=== PATIENT | male | born 1980 | race Caucasian/White ===

== ENCOUNTER 2016-12-29 16:18 | Emergency (ER) | payer OTHER ==
--- NOTE | 2016-12-29 18:14 | ED ---
Back Pain - HPI Summary HPI Summary: 36 male presents with complaints of lower back pain and hearing a "pop" that began yesterday 12/28/16 when trying to lift his who is paralyzed into the car. Patients states he was lifting up and twisted when he felt instant pain and a pop. Patient states he has chronic back pain that began 13 years ago from a previous injury however, he has worsening pain intermittently when he tweaks it. Patient denies numbness/tingling, saddle anesthesia, bladder/bowel incontinence and weakness. He is able to walk and bear weight however it does cause him pain. Movement makes the pain worse. Tried taking 6-800mg of ibuprofen without relief. Denies known bruising and swelling. No recent trauma. Denies neck pain, abdominal pain, difficulty breathing, chest pain and upper back pain. No PMHx. - History of Current Complaint Chief Complaint: EDBackInjuryPain Stated Complaint: LOWER BACK PAIN Time Seen by Provider: 12/29/16 17:46 Hx Obtained From: Patient Onset/Duration: Sudden Onset, Lasting Days - started yesterday, Still Present, Worse Since Onset/Duration: Started Days Ago, Traumatic - twisting and lifting Timing: Constant Back Pain Location: Is Discrete @ - lower lumbarsacral pain Severity Initially: Moderate Severity Currently: Moderate Pain Intensity: 9 Pain Scale Used: 0-10 Numeric Character: Sharp, Aching, Throbbing, Spasmodic Aggravating Symptom(s): Movement, Lifting, Walking Alleviating Symptom(s): Rest Associated Signs And Symptoms: Positive: Pain with Weight Bearing. Negative: Swelling, Redness, Bruising, Weakness, Numbness, Tingling, Abdominal Pain, Bladder Incontinence, Bowel Incontinence Related History: Previous Back Injury - Risk Factors AAA Risk Factors: Negative TAD Risk Factors: Negative Cauda Equina Risk Factors: Negative Epidural Abscess Risk Factors: Negative - Allergies/Home Medications Allergies/Adverse Reactions: Allergies Allergy/AdvReac Type Severity Reaction Status Date / Time Codeine Allergy Hives Verified 12/29/16 16:31 Tramadol Allergy Difficulty Verified 12/29/16 16:30 Breathing PMH/Surg Hx/FS Hx/Imm Hx Endocrine/Hematology History: Denies: Hx Diabetes Cardiovascular History: Denies: Hx Hypertension Respiratory History: Denies: Hx Asthma Musculoskeletal History: Reports: Hx Back Problems - Surgical History Surgery Procedure, Year, and Place: right shoulder - Immunization History Immunizations Up to Date: Yes Infectious Disease History: Yes Infectious Disease History: Denies: Traveled Outside the [place] in Last 30 Days - Family History Known Family History: Positive: None - Social History Alcohol Use: Rare Substance Use Type: Reports: None Smoking Status (MU): Unknown if Ever Smoked Review of Systems Constitutional: Negative Cardiovascular: Negative Respiratory: Negative Gastrointestinal: Negative Genitourinary: Negative Positive: Arthralgia, Myalgia, Decreased ROM - lower back Skin: Negative Neurological: Negative All Other Systems Reviewed And Are Negative: Yes Physical Exam Triage Information Reviewed: Yes Vital Signs On Initial Exam: Initial Vitals Temp Pulse Resp BP 98.1 F 81 18 150/85 12/29/16 16:28 12/29/16 16:28 12/29/16 16:28 12/29/16 16:28 BP elevated, noted patient was in pain. re-checked and 120/80. recommended to follow up with PCP for re-check at next visit Vital Signs Reviewed: Yes Appearance: Positive: Well-Appearing, Well-Nourished, Pain Distress - mild Skin: Positive: Warm, Skin Color Reflects Adequate Perfusion, Dry, Other - no erythema, ecchymosis or obvious deformity Head/Face: Positive: Normal Head/Face Inspection Eyes: Positive: Normal, EOMI, Conjunctiva Clear ENT: Positive: Normal ENT inspection, Hearing grossly normal Neck: Positive: Supple, Nontender Respiratory/Lung Sounds: Positive: Clear to Auscultation, Breath Sounds Present. Negative: Rales, Rhonchi, Wheezes Cardiovascular: Positive: Normal, RRR, Pulses are Symmetrical in both Upper and Lower Extremities - 2+ b/l LE and UE. Negative: Leg Edema Left, Leg Edema Right Abdomen Description: Positive: Nontender, No Organomegaly, Soft. Negative: Bruit, CVA Tenderness (R), CVA Tenderness (L), Distended, Guarding, Peritoneal Signs, Pulsatile Mass Bowel Sounds: Positive: Present Musculoskeletal: Positive: Limited @ - ROM with flexion and extension of back due to pain. (+) SLR, LE ROM and strength 5/5, normal. sensation and skin intact., Pain @ - lower back pain at level of L1-L4 with palpation, paraspinal muscles, worse on left than right.. Negative: Interruption @, Miranda Sign Left, Miranda Sign Right, Edema Left, Edema Right Neurological: Positive: Normal, Sensory/Motor Intact, Alert, Oriented to Person Place, Time, CN Intact II-III, Reflexes Intact, NV Bundle Intact Distally, Normal Gait - causes pain Psychiatric: Positive: Normal AVPU Assessment: Alert Diagnostics - Vital Signs Vital Signs Temp Pulse Resp BP Pulse Ox 12/29/16 17:20 99.3 F 73 18 120/83 98 12/29/16 16:28 98.1 F 81 18 150/85 - Laboratory Lab Statement: Any lab studies that have been ordered have been reviewed, and results considered in the medical decision making process. Back Pain Course/Dx - Course Course Of Treatment: Given toradol, norflex and dexamethasone for lumbosacral strain. X-ray did not seem appropriate due to no recent trauma or blunt force injury, IRVIN and PE findings. Patient states his chronic back pain is from 2 slipped discs. However his is acute upon chronic. Patient had some relief. Sent home with pain management, rest, refrain from physical activity, heat/ice and follow up. Aware of worening signs and symptoms to watch out for. Reference #: [id number] - Diagnoses Differential Diagnosis/HQI/PQRI: Positive: Arthritis, Herniated Disc, Strain, Sprain Provider Diagnoses: Lumbosacral strain Discharge - Discharge Plan Condition: Stable Disposition: HOME Prescriptions: Cyclobenzaprine TAB* [Flexeril 10 MG TAB*] 10 mg PO BEDTIME PRN #10 tab PRN Reason: Spasms HYDROcodone/ACETAMIN 5-325 MG* [Superior 5-325 TAB*] 1 tab PO Q6H PRN #10 tab MDD 2 PRN Reason: Pain predniSONE TAB* [Deltasone TAB*] 20 mg PO DAILY #4 tab Patient Education Materials: Low Back Strain (ED) Referrals: Friend,Amanad Mora, [employer] [Primary Care Provider] - Additional Instructions: Take prescribed pain management twice daily as needed for pain. Take prescribed muscle relaxer at bedtime and do not drive while taking these medications. Take ibuprofen 600mg in between doses to help with pain and inflammation. Take steroid as directed for the next 4 days, starting tomorrow. Rest, refrain from physical activity and heat/ice as we discussed. Follow up with your PCP, and to re-check blood pressure. If your symptoms worsen or new symptoms develop such as increasing pain, trouble going to the bathroom, and numbness/tingling please return promptly.
[2016-12-29] MEDS ORDERED: Ketorolac INJ* 60 MG/2 ML VIAL IM ONE (18:35)
[2016-12-29] MEDS ORDERED: Dexamethasone IV* 4 MG/ML 1 ML (4 MG) IM ONE (18:35)
[2016-12-29] MEDS ORDERED: Orphenadrine Citrate IV* 30 MG/ML 2 ML VIAL IM ONE (18:36)
[2016-12-29] MEDS ORDERED: HYDROcodone/ACETAMIN 5-325 MG* 1 TAB PO ONE (18:57)
[2016-12-29 19:39] VITALS: BP 127/70
== END 2016-12-29 19:37 | disposition home or self-care (01) ==
LOC: ED 16:18
DX: S39.012A Strain of muscle, fascia and tendon of lower back, initial encounter (principal); X50.9XXA Other and unspecified overexertion or strenuous movements or postures, initial encounter; Y93.9 Activity, unspecified; Y92.9 Unspecified place or not applicable
CPT/HCPCS: 99282; J1100; J1885; J2360

== ENCOUNTER 2018-01-23 21:21 | Emergency (ER) | payer SELFPAY ==
[2018-01-23] MEDS ORDERED: Orphenadrine Citrate IV* 30 MG/ML 2 ML VIAL IM ONE (22:23)
[2018-01-23] MEDS ORDERED: Ketorolac INJ* 60 MG/2 ML VIAL IM ONE (22:23)
--- NOTE | 2018-01-23 22:26 | ED ---
Back Pain - HPI Summary HPI Summary: 37 now presents to ER with complaints of low right back pain after hurting it while moving a bed yesterday. Patient states he twisted and felt a pop. It is occurred last night. States ibuprofen and Tylenol with minimal relief. Has also been using [id number] topical agents with minimal relief. Also has a history of chronic back pain with herniated disks. No other medical problems. No past medical history. Last took 400 mg of ibuprofen around 4:30 PM. Denies numbness/tingling, weakness, saddle anesthesia, bladder and bowel incontinence, being unable to bear weight. No IV drug use. No fever or chills. Denies erythema, bruising, edema. Is able to walk without difficulty. Changing positions makes pain worse. - History of Current Complaint Chief Complaint: EDBackInjuryPain Stated Complaint: BACK PAIN Time Seen by Provider: 01/23/18 21:34 Hx Obtained From: Patient Onset/Duration: Sudden Onset, Still Present Onset/Duration: Started Days Ago - Last night, Traumatic, Still Present Timing: Constant Back Pain Location: Is Discrete @ - Right lower back Severity Initially: Severe Severity Currently: Moderate Pain Intensity: 8 Pain Scale Used: 0-10 Numeric Character: Sharp, Aching, Stiffness Aggravating Symptom(s): Movement, Lifting, Bending Alleviating Symptom(s): Rest, OTC Meds Associated Signs And Symptoms: Negative: Swelling, Redness, Bruising, Fever, Weakness, Numbness, Tingling, Abdominal Pain, Bladder Incontinence, Bowel Incontinence, Weight Loss, Pain with Weight Bearing - Risk Factors AAA Risk Factors: Negative Cauda Equina Risk Factors: Negative Epidural Abscess Risk Factors: Negative - Allergies/Home Medications Allergies/Adverse Reactions: Allergies Allergy/AdvReac Type Severity Reaction Status Date / Time MS Codeine [Codeine] Allergy Hives Verified 12/29/16 16:31 MS Tramadol [Tramadol] Allergy Difficulty Verified 12/29/16 16:30 Breathing PMH/Surg Hx/FS Hx/Imm Hx Endocrine/Hematology History: Denies: Hx Diabetes Cardiovascular History: Denies: Hx Hypertension Respiratory History: Denies: Hx Asthma Musculoskeletal History: Reports: Hx Back Problems - Surgical History Surgery Procedure, Year, and Place: right shoulder - Immunization History Immunizations Up to Date: Yes Infectious Disease History: No Infectious Disease History: Denies: Traveled Outside the [place] in Last 30 Days - Family History Known Family History: Positive: None - Social History Alcohol Use: Rare Substance Use Type: Reports: None Smoking Status (MU): Heavy Every Day Tobacco Smoker Review of Systems Constitutional: Negative Cardiovascular: Negative Respiratory: Negative Gastrointestinal: Negative Positive: Arthralgia, Myalgia Skin: Negative Neurological: Negative All Other Systems Reviewed And Are Negative: Yes Physical Exam Triage Information Reviewed: Yes Vital Signs On Initial Exam: Initial Vitals Temp Pulse Resp BP Pulse Ox 98.6 F 111 18 144/85 96 01/23/18 21:24 01/23/18 21:24 01/23/18 21:24 01/23/18 21:24 01/23/18 21:24 Vital Signs Reviewed: Yes Appearance: Positive: Well-Appearing, No Pain Distress, Well-Nourished Skin: Positive: Warm, Skin Color Reflects Adequate Perfusion, Dry. Negative: Cold, Numb, Erythema @, Other - No edema or ecchymosis Head/Face: Positive: Normal Head/Face Inspection Eyes: Positive: Conjunctiva Clear ENT: Positive: Hearing grossly normal Neck: Positive: Supple, Nontender Respiratory/Lung Sounds: Positive: Clear to Auscultation, Breath Sounds Present. Negative: Rales, Rhonchi, Wheezes Cardiovascular: Positive: Normal, RRR, Bradycardia. Negative: Murmur, Rub Abdomen Description: Positive: Nontender, Soft Bowel Sounds: Positive: Present Musculoskeletal: Positive: Limited @ - With flexion and extension of the back due to pain, Pain @ - On palpation of L1 to L 5 area right paraspinal without signs of deformity.. Negative: Edema Left, Edema Right Neurological: Positive: Normal, Sensory/Motor Intact, Alert, Oriented to Person Place, Time, CN Intact II-III, Reflexes Intact, NV Bundle Intact Distally, Normal Gait Diagnostics - Vital Signs Vital Signs Temp Pulse Resp BP Pulse Ox 01/23/18 21:24 98.6 F 111 18 144/85 96 - Laboratory Lab Statement: Any lab studies that have been ordered have been reviewed, and results considered in the medical decision making process. Back Pain Course/Dx - Course Course Of Treatment: Appears to be suffering from a lumbosacral strain. Given Toradol and Norflex. Continue ibuprofen and Tylenol at home after 12-24 hours. He compresses. Topical anesthetics. Lidoderm patch. Rest. Follow-up with specialist and PCP. Normal vitals and physical exam otherwise. No concern for cauda equina or other etiology. Aware worsening signs and symptoms watch out for. Patient agrees and understands - Diagnoses Differential Diagnosis/HQI/PQRI: Positive: Herniated Disc, Strain, Sprain Provider Diagnoses: Lumbosacral strain Discharge - Sign-Out/Discharge Documenting (check all that apply): Discharge/Admit/Transfer - Discharge Plan Condition: Improved Disposition: HOME Prescriptions: Cyclobenzaprine TAB* [Flexeril 10 MG TAB*] 5 mg PO TID PRN #15 tab PRN Reason: Spasms Patient Education Materials: Low Back Strain (ED) Referrals: [facility] [place] [facility] REFERR[facility] [Outside] No Primary Care Phys,NOPCP [Primary Care Provider] - Otto Spain MD [Medical Doctor] - Additional Instructions: take prescribed medication as directed. Ibuprofen 600mg every 6-8 hours as needed for the next 3-5 days for pain/ inflammation starting tomorrow at 5pm do not take any prior due to toradol. tyleonl in between doses, and you may take even with the toradol injection given in ER Apply heating pad and rest. Refrain from heavy lifting Follow up with specialist/physical therapy for further work up and treatment. Follow up with pcp. - Billing Disposition and Condition Condition: IMPROVED Disposition: Home
[2018-01-23 22:56] VITALS: BP 124/87
== END 2018-01-23 22:56 | disposition home or self-care (01) ==
LOC: ED 21:21
DX: S39.012A Strain of muscle, fascia and tendon of lower back, initial encounter (principal); Z72.0 Tobacco use; X50.0XXA Overexertion from strenuous movement or load, initial encounter; Y93.89 Activity, other specified; Y92.9 Unspecified place or not applicable
CPT/HCPCS: 96372; 99282; J1885; J2360

== ENCOUNTER 2018-05-06 04:00 | Emergency (ER) | payer OTHER ==
--- NOTE | 2018-05-06 04:46 | ED ---
Back Pain - HPI Summary HPI Summary: Pt is a 37 y/o male who presents to the ED c/o acute on chronic back pain. He states he slipped on his porch after the rain and landed on his lower back buttocks area. Pt has chronic back pain, and just had a back pain flare up recently. The pain goes right up the spine. He denies any numbness/weakness in his legs or incontinence. Pt states he has had leg weakness due to back pain in the past. - History of Current Complaint Chief Complaint: EDBackInjuryPain Stated Complaint: FALL/BACK PAIN Hx Obtained From: Patient Onset/Duration: Sudden Onset, Lasting Hours - 23:00 yesterday, Still Present Timing: Constant Back Pain Location: Is Discrete @ - Low back Severity Currently: Moderate Pain Intensity: 7 Pain Scale Used: 0-10 Numeric Aggravating Symptom(s): Other - Slipping on wet porch Alleviating Symptom(s): Nothing Associated Signs And Symptoms: Negative: Weakness, Numbness, Bladder Incontinence, Bowel Incontinence - Allergies/Home Medications Allergies/Adverse Reactions: Allergies Allergy/AdvReac Type Severity Reaction Status Date / Time tramadol Allergy Mild Difficulty Verified 05/06/18 04:05 Breathing codeine AdvReac Intermediate Hives Verified 05/06/18 04:05 PMH/Surg Hx/FS Hx/Imm Hx Endocrine/Hematology History: Denies: Hx Diabetes Cardiovascular History: Denies: Hx Hypertension Respiratory History: Denies: Hx Asthma Musculoskeletal History: Reports: Hx Back Problems - Surgical History Surgery Procedure, Year, and Place: right shoulder Infectious Disease History: No Infectious Disease History: Denies: Traveled Outside the [place] in Last 30 Days - Family History Known Family History: Negative: Blood Disorder - Social History Alcohol Use: Rare Hx Substance Use: Yes Substance Use Type: Reports: Marijuana Hx Tobacco Use: Yes Smoking Status (MU): Heavy Every Day Tobacco Smoker Review of Systems Negative: incontinence Positive: Myalgia - Low back pain Negative: Weakness, Numbness All Other Systems Reviewed And Are Negative: Yes Physical Exam - Summary Physical Exam Summary: Appearance: Well appearing, no pain distress Skin: warm, dry, reflects adequate perfusion Head/face: normal Eyes: EOMI, ELENA ENT: normal Neck: supple, non-tender Respiratory: CTA, breath sounds present Cardiovascular: RRR, pulses symmetrical Abdomen: soft, mild lumbosacral joint tenderness, no midline lumbar tenderness Bowel Sounds: present Musculoskeletal: normal, strength/ROM intact, negative straight leg test Neuro: normal, sensory motor intact, A&Ox3 Triage Information Reviewed: Yes Vital Signs On Initial Exam: Initial Vitals Temp Pulse Resp BP Pulse Ox 98.0 F 88 20 150/93 98 05/06/18 04:02 05/06/18 04:02 05/06/18 04:02 05/06/18 04:02 05/06/18 04:02 Vital Signs Reviewed: Yes Diagnostics - Vital Signs Vital Signs Temp Pulse Resp BP Pulse Ox 05/06/18 04:02 98.0 F 88 20 150/93 98 - Laboratory Lab Statement: Any lab studies that have been ordered have been reviewed, and results considered in the medical decision making process. Back Pain Course/Dx - Course Course Of Treatment: With normal gait and normal neurologic exam with minor discomfort after slip and fall. History of pain in similar location. Treat symptomatically, given follow-up with the [facility] and also PCP referral. Suggested is family member caretaker or physical therapy. - Diagnoses Differential Diagnosis/HQI/PQRI: Positive: Fracture, Strain, Sprain Provider Diagnoses: Fall, Lumbar strain, Chronic back pain Discharge - Sign-Out/Discharge Documenting (check all that apply): Patient Departure - Discharge Plan Condition: Improved Disposition: HOME Prescriptions: Cyclobenzaprine TAB* [Flexeril 10 MG TAB*] 5 mg PO TID PRN #15 tab PRN Reason: Spasms Naproxen [Naproxen 500 mg tab] 500 mg PO BID PRN #12 tablet PRN Reason: Pain Patient Education Materials: Acute Low Back Pain (ED) Forms: *Work Release Referrals: [facility] [Outside] [facility] [place] [facility]ERRAL [Outside] Additional Instructions: Ice, range of motion exercises. Call referral line for a family doctor. You can be followed up here at the [facility]. Recommended is physical therapy or family member caretaker for your chronic, ongoing back pain. Return if worse, numbness/weakness, difficulty with bowel or bladder, worse or other concerns. - Billing Disposition and Condition Condition: IMPROVED Disposition: Home - Attestation Statements Document Initiated by Scribe: Yes Documenting Scribe: Paris Chirinos Provider For Whom Scribe is Documenting (Include Credential): Quincy Lucas MD Scribe Attestation: IParis, scribed for Quincy Lucas MD on 05/06/18 at 0624. Scribe Documentation Reviewed: Yes Provider Attestation: The documentation as recorded by the petraibParis ponce accurately reflects the service I personally performed and the decisions made by me, Quincy Lucas MD
[2018-05-06] MEDS ORDERED: Cyclobenzaprine TAB* 10 MG PO ONE (05:00)
[2018-05-06] MEDS ORDERED: Naproxen TAB* 250 MG PO ONE (05:00)
[2018-05-06 05:11] VITALS: BP 136/78
== END 2018-05-06 05:10 | disposition home or self-care (01) ==
LOC: ED 04:00
DX: S39.012A Strain of muscle, fascia and tendon of lower back, initial encounter (principal); W01.0XXA Fall on same level from slipping, tripping and stumbling without subsequent striking against object, initial encounter; Y92.008 Other place in unspecified non-institutional (private) residence as the place of occurrence of the external cause; M54.9 Dorsalgia, unspecified; G89.29 Other chronic pain; F17.200 Nicotine dependence, unspecified, uncomplicated; Z88.6 Allergy status to analgesic agent
CPT/HCPCS: 99282; A9270-GY

== ENCOUNTER 2018-05-23 12:44 | Emergency (ER) | payer OTHER ==
--- NOTE | 2018-05-23 13:07 | ED ---
Back Pain - HPI Summary HPI Summary: This pt is a 37 y/o male presenting to [facility] c/o worsening acute on chronic back pain for the past few days. Pt reports that 2 weeks ago he injured his back after putting garbage into the dumpster. He states he filed an incident report but was soon after fired from work. Pt notes he has not been able to see a provider until now. He occasional radiating pain down right leg when ambulating. His pain is aggravated with ambulation. Denies urinary or bowel dysfunction, weakness, numbness, or tingling in LE, abd pain. PMHx: 2 herniated discs in lower back. Allergic to Tramadol and Codeine. - History of Current Complaint Chief Complaint: EDBackInjuryPain Stated Complaint: LOWER BACK PAIN Time Seen by Provider: 05/23/18 12:57 Hx Obtained From: Patient Onset/Duration: Lasting Days, Still Present Onset/Duration: Started Days Ago, Still Present Timing: Lasting Days Back Pain Location: Is Discrete @ - low back, Radiates To - Right leg occasionally when ambulating Severity Currently: Severe Pain Intensity: 10 Pain Scale Used: 0-10 Numeric Aggravating Symptom(s): Walking Alleviating Symptom(s): Rest Associated Signs And Symptoms: Positive: Pain with Weight Bearing - while ambulating. Negative: Fever, Weakness, Numbness, Tingling, Abdominal Pain, Bladder Incontinence, Bowel Incontinence - Allergies/Home Medications Allergies/Adverse Reactions: Allergies Allergy/AdvReac Type Severity Reaction Status Date / Time tramadol Allergy Severe Difficulty Verified 05/23/18 13:22 Breathing codeine AdvReac Intermediate Hives Verified 05/06/18 04:05 PMH/Surg Hx/FS Hx/Imm Hx Endocrine/Hematology History: Denies: Hx Diabetes Cardiovascular History: Denies: Hx Hypertension Respiratory History: Denies: Hx Asthma Musculoskeletal History: Reports: Hx Back Problems - herniated discs - Surgical History Surgery Procedure, Year, and Place: right shoulder surgery Infectious Disease History: No Infectious Disease History: Denies: Traveled Outside the [place] in Last 30 Days - Family History Known Family History: Negative: Blood Disorder - Social History Alcohol Use: Rare Hx Substance Use: Yes Substance Use Type: Reports: Marijuana Hx Tobacco Use: Yes Smoking Status (MU): Heavy Every Day Tobacco Smoker Review of Systems Negative: Fever, Chills Negative: Abdominal Pain Negative: incontinence - urinary or bowel Musculoskeletal: Other - back pain Negative: Weakness, Paresthesia, Numbness All Other Systems Reviewed And Are Negative: Yes Physical Exam - Summary Physical Exam Summary: VITAL SIGNS: Reviewed. GENERAL: Patient is a well-developed and nourished male who is lying comfortable in the stretcher. Patient is not in any acute respiratory distress. HEAD AND FACE: No signs of trauma. No ecchymosis, hematomas or skull depressions. No sinus tenderness. EYES: PERRLA, EOMI x 2, No injected conjunctiva, no nystagmus. EARS: Hearing grossly intact. Ear canals and tympanic membranes are within normal limits. MOUTH: Oropharynx within normal limits. NECK: Supple, trachea is midline, no adenopathy, no JVD, no carotid bruit, no c- spine tenderness, neck with full ROM. CHEST: Symmetric, no tenderness at palpation LUNGS: Clear to auscultation bilaterally. No wheezing or crackles. CVS: Regular rate and rhythm, S1 and S2 present, no murmurs or gallops appreciated. ABDOMEN: Soft, non-tender. No signs of distention. No rebound, no guarding, and no masses palpated. Bowel sounds are normal. MSK: FROM in all major joints, no edema, no cyanosis or clubbing. Tenderness in the lumbar spine. Tenderness in the right paraspinal muscle of the lumbar spine. NEURO: Alert and oriented x 3. No acute neurological deficits. Speech is normal and follows commands. SKIN: Dry and warm Triage Information Reviewed: Yes Vital Signs On Initial Exam: Initial Vitals Temp Pulse Resp BP Pulse Ox 98.7 F 88 15 132/86 98 05/23/18 12:53 05/23/18 12:53 05/23/18 12:53 05/23/18 12:53 05/23/18 12:53 Vital Signs Reviewed: Yes Diagnostics - Vital Signs Vital Signs Temp Pulse Resp BP Pulse Ox 05/23/18 12:53 98.7 F 88 15 132/86 98 - Laboratory Lab Statement: Any lab studies that have been ordered have been reviewed, and results considered in the medical decision making process. - Radiology Lumbar spine XR Xray Interpretation: Positive (See Comments) - IMPRESSION: Straightening of the lumbar lordosis. Dr. Mora has reviewed this report. Radiology Interpretation Completed By: Radiologist Back Pain Course/Dx - Course Assessment/Plan: pt is a 37 y/o male presenting to [facility] c/o worsening acute on chronic back pain for the past few days. Pt reports that 2 weeks ago he injured his back after putting garbage into the dumpster. He states he filed an incident report but was soon after fired from work. Pt notes he has not been able to see a provider until now. He occasional radiating pain down right leg when ambulating. His pain is aggravated with ambulation. Denies urinary or bowel dysfunction, weakness, numbness, or tingling in LE, abd pain. In the ED course the patient was given Toradol, Decadron and Flexeril for the pain. After these medications were given his symptoms have significantly improved. Lumbar spine x-ray IMPRESSION: STRAIGHTENING OF THE LUMBAR LORDOSIS. Since the x-ray of the lumbar spine doesnt show any fractures, dislocations or any herniated disks I would give the patient. Medications to go home as well as muscle relaxants. I discussed the findings and test results with the patient and he agrees with the plan. Patient is able to ambulate. Patient denies any neurological focal deficits and he denies any urinary or bowel dysfunction. Therefore, he will be discharged home with follow-up from his PCP. He is hemodynamically stable, alert and oriented x3. - Diagnoses Differential Diagnosis/HQI/PQRI: Positive: Arthritis, Herniated Disc, Strain, Sprain Provider Diagnoses: Back pain Discharge - Sign-Out/Discharge Documenting (check all that apply): Patient Departure - Discharge home - Discharge Plan Condition: Stable Disposition: HOME Prescriptions: Cyclobenzaprine TAB* [Flexeril 10 MG TAB*] 10 mg PO BEDTIME PRN #10 tab PRN Reason: Spasms Ibuprofen TAB* [Motrin TAB* 600 MG] 600 mg PO Q8H PRN #30 tab PRN Reason: Pain methylPREDNISolone TAB* [Medrol TAB*] 4 mg PO DAILY #1 kimberly Patient Education Materials: Back Pain (ED) Referrals: [facility] [Outside] Additional Instructions: FOLLOW UP WITH YOUR PRIMARY CARE PROVIDER WITHIN ONE WEEK FOR HIGH BLOOD PRESSURE NOTED TODAY. RETURN TO THE ED FOR ANY NEW OR WORSENING SYMPTOMS. - Attestation Statements Document Initiated by Scribe: Yes Documenting Scribe: Nancy Lira Provider For Whom Scribe is Documenting (Include Credential): MD Carla Byrdibe Attestation: Nancy Riley, scribed for Calos Mora MD on 05/23/18 at 1555.
[2018-05-23] MEDS ORDERED: Ketorolac INJ* 60 MG/2 ML VIAL IM ONE (13:20)
[2018-05-23] MEDS ORDERED: Orphenadrine Citrate IV* 30 MG/ML 2 ML VIAL IV ONE (13:20)
[2018-05-23] MEDS ORDERED: Dexamethasone IV* 4 MG/ML 1 ML (4 MG) IM ONE (13:20)
[2018-05-23] MEDS ORDERED: Orphenadrine Citrate IV* 30 MG/ML 2 ML VIAL IM ONE (13:25)
--- NOTE | 2018-05-23 13:49 | RAD ---
HISTORY: back pain COMPARISONS: None VIEWS: 4 , Frontal, lateral, and coned-down lateral sacral views of the lumbar spine FINDINGS: ALIGNMENT: There is straightening of the normal lumbar lordosis. VERTEBRAL BODIES: The vertebral body heights are normal. The interpedicular distances are normal. JOINTS: The facet joints are normal. INTERVERTEBRAL DISCS: The intervertebral disc heights are normal. SOFT TISSUE: Unremarkable. OTHER: The pelvis is unremarkable. The lung bases are clear. IMPRESSION: STRAIGHTENING OF THE LUMBAR LORDOSIS.
[2018-05-23 15:12] VITALS: BP 113/85
== END 2018-05-23 15:11 | disposition home or self-care (01) ==
LOC: ED 12:44
DX: M54.9 Dorsalgia, unspecified (principal); G89.29 Other chronic pain; F17.210 Nicotine dependence, cigarettes, uncomplicated
CPT/HCPCS: 72100; 96372; 96374; 99283; J1100; J1885; J2360

== ENCOUNTER 2018-11-06 09:31 | Emergency (ER) | payer OTHER ==
--- NOTE | 2018-11-06 10:53 | ED ---
Throat Pain/Nasal Congestion - HPI Summary HPI Summary: Patient is a 37 on male who presents emergency department for right ear pain and hearing loss. Patient states he noticed some right ear pain about a week ago and today noticed decreased hearing. Denies fever, chills, sore throat, cough or any cold symptoms. Symptoms are mild in severity. Notes he does use Q -tips to clean ears. No current modifying factors. - History of Current Complaint Chief Complaint: EDEarPain Time Seen by Provider: 11/06/18 10:29 Hx Obtained From: Patient - Allergies/Home Medications Allergies/Adverse Reactions: Allergies Allergy/AdvReac Type Severity Reaction Status Date / Time tramadol Allergy Severe Difficulty Verified 11/06/18 09:37 Breathing codeine AdvReac Intermediate Hives Verified 11/06/18 09:37 PMH/Surg Hx/FS Hx/Imm Hx Previously Healthy: Yes Endocrine/Hematology History: Denies: Hx Diabetes Cardiovascular History: Denies: Hx Hypertension Respiratory History: Denies: Hx Asthma Musculoskeletal History: Reports: Hx Back Problems - herniated discs - Surgical History Surgery Procedure, Year, and Place: right shoulder surgery Infectious Disease History: No Infectious Disease History: Denies: Traveled Outside the [place] in Last 30 Days - Family History Known Family History: Positive: None Negative: Blood Disorder - Social History Occupation: Employed Full-time Lives: Alone Alcohol Use: Rare Hx Substance Use: Yes Substance Use Type: Reports: Marijuana Hx Tobacco Use: Yes Smoking Status (MU): Heavy Every Day Tobacco Smoker Review of Systems Constitutional: Negative Negative: Fever, Chills Eyes: Negative Positive: Ear Ache. Negative: Sore Throat, Nasal Discharge Respiratory: Negative Negative: Cough All Other Systems Reviewed And Are Negative: Yes Physical Exam Triage Information Reviewed: Yes Vital Signs On Initial Exam: Initial Vitals Temp Pulse Resp BP Pulse Ox 97.3 F 77 16 143/91 97 11/06/18 09:37 11/06/18 09:37 11/06/18 09:37 11/06/18 09:37 11/06/18 09:37 Vital Signs Reviewed: Yes Appearance: Positive: Well-Appearing - Pt. sitting on bed in NAD. Skin: Positive: Warm, Dry Head/Face: Positive: Normal Head/Face Inspection Eyes: Positive: Normal, EOMI, ELENA, Conjunctiva Clear ENT: Positive: Other - Left TM and canal unremarkable. Right canal with cerumen impaction. Neck: Positive: Supple Neurological: Positive: Normal, CN Intact II-III Psychiatric: Positive: Affect/Mood Appropriate Procedures - Procedure Summary Procedure Summary: Warm water and H2O2 was used to flush right ear. Successfully removed cerumen. Pt.'s hearing returned to normal. TM unremarkable without perforation. Small amount of irritation to inner canal. Pt. tolerated well. Diagnostics - Vital Signs Vital Signs Temp Pulse Resp BP Pulse Ox 11/06/18 09:37 97.3 F 77 16 143/91 97 - Laboratory Lab Statement: Any lab studies that have been ordered have been reviewed, and results considered in the medical decision making process. EENT Course/Dx - Course Course Of Treatment: Patient presenting with cerumen impaction that was removed as noted above. Advised to avoid Q-tips. Patient discharged home. To call the physician referral line to establish a PCP. - Differential Diagnoses Differential Diagnoses: Otitis Externa, Otitis Media, Perforated TM - Diagnoses Provider Diagnoses: Cerumen impaction Discharge - Sign-Out/Discharge Documenting (check all that apply): Patient Departure Patient Received Moderate/Deep Sedation with Procedure: No - Discharge Plan Condition: Improved Disposition: HOME Patient Education Materials: Cerumen Impaction (ED) Referrals: [facility] [Outside] [facility] [Outside] Additional Instructions: Call the [facility] referral line to establish a PCP Do not use Q tips to clean ears Return to ER if symptoms change or worsen - Billing Disposition and Condition Condition: IMPROVED Disposition: Home
[2018-11-06 11:03] VITALS: BP 137/84
== END 2018-11-06 11:02 | disposition home or self-care (01) ==
LOC: ED 09:31
DX: H61.21 Impacted cerumen, right ear (principal); Z88.5 Allergy status to narcotic agent; F17.200 Nicotine dependence, unspecified, uncomplicated
CPT/HCPCS: 99281

== ENCOUNTER 2019-01-13 00:34 | Emergency (ER) | payer OTHER ==
--- NOTE | 2019-01-13 01:53 | ED ---
Altered Mental Status - HPI Summary HPI Summary: This patient is a 38 year old male brought in by EMS presenting to [facility] with a chief complaint of altered mental status. The patient was found unresponsive in his car when he was woken up by a coworker. The patient says he's tired and diaphoretic. The patient states he smokes marijuana for pain from 2 herniated discs in his lumbar spine. He says he last smoked 13 hours ago. The patient he slept a few hours last night. - History Of Current Complaint Chief Complaint: EDSyncope Stated Complaint: OVERDOSE PER EMS Hx Obtained From: Patient - Allergies/Home Medications Allergies/Adverse Reactions: Allergies Allergy/AdvReac Type Severity Reaction Status Date / Time No Known Allergies Allergy Verified 01/13/19 01:17 Home Medications: Home Medications NK [No Home Medications Reported] 01/13/19 [History Confirmed 01/13/19] PMH/Surg Hx/FS Hx/Imm Hx Endocrine/Hematology History: Denies: Hx Diabetes Infectious Disease History: No Infectious Disease History: Denies: Traveled Outside the [place] in Last 30 Days - Family History Known Family History: Negative: Hypertension - Social History Alcohol Use: None Substance Use Type: Reports: Marijuana Smoking Status (MU): Heavy Every Day Tobacco Smoker Review of Systems Positive: Fatigue, Skin Diaphoresis Neurological: Other - Unresponsiveness All Other Systems Reviewed And Are Negative: Yes Physical Exam - Summary Physical Exam Summary: VITAL SIGNS: Reviewed. GENERAL: Patient is a well-developed and nourished MALE who is lying comfortable in the stretcher. Patient is not in any acute respiratory distress. HEAD AND FACE: No signs of trauma. No ecchymosis, hematomas or skull depressions. No sinus tenderness. EYES: PERRLA, EOMI x 2, No injected conjunctiva, no nystagmus. EARS: Hearing grossly intact. Ear canals and tympanic membranes are within normal limits. MOUTH: Oropharynx within normal limits. NECK: Supple, trachea is midline, no adenopathy, no JVD, no carotid bruit, no c- spine tenderness, neck with full ROM CHEST: Symmetric, no tenderness at palpation LUNGS: Clear to auscultation bilaterally. No wheezing or crackles. CVS: Regular rate and rhythm, S1 and S2 present, no murmurs or gallops appreciated. ABDOMEN: Soft, non-tender. No signs of distention. No rebound no guarding, and no masses palpated. Bowel sounds are normal. EXTREMITIES: FROM in all major joints, no edema, no cyanosis or clubbing. NEURO: Alert and oriented x 3. No acute neurological deficits. Speech is normal and follows commands. SKIN: Dry and warm Triage Information Reviewed: Yes Vital Signs On Initial Exam: Initial Vitals Temp Pulse Resp BP Pulse Ox 97.3 F 103 20 136/108 96 01/13/19 00:40 01/13/19 00:40 01/13/19 00:40 01/13/19 00:40 01/13/19 00:40 Vital Signs Reviewed: Yes Diagnostics - Vital Signs Vital Signs Temp Pulse Resp BP Pulse Ox 01/13/19 01:10 96 136/108 97 01/13/19 01:09 95 98 01/13/19 00:40 97.3 F 103 20 136/108 96 - Laboratory Lab Statement: Any lab studies that have been ordered have been reviewed, and results considered in the medical decision making process. - EKG 0208 Cardiac Rate: NL EKG Rhythm: Sinus Rhythm - 70 BPM Summary of EKG Findings: Normal axis, normal interval, no ischemic changes. Altered Mental Statu Course/Dx - Course Course Of Treatment: This patient is a 38 year old male brought in by EMS presenting to [facility] with a chief complaint of altered mental status. Toxicology was remarkable for cocaine use. A plan for discharge was discussed with the patient and he was agreeable with this plan. - Diagnoses Provider Diagnoses: Pre-syncope, Substance abuse Discharge - Sign-Out/Discharge Documenting (check all that apply): Patient Departure - Discharge Patient Received Moderate/Deep Sedation with Procedure: No - Discharge Plan Condition: Stable Disposition: HOME Patient Education Materials: Near Syncope (ED), Cocaine Abuse (ED) Additional Instructions: Return to ED with any new or worsening symptoms. - Attestation Statements Document Initiated by Scribe: Yes Documenting Scribe: Dakota Vitale Provider For Whom Scribe is Documenting (Include Credential): Farhad Sage MD Scribe Attestation: Dakota Riley, scribed for Farhad Sage MD on 01/13/19 at 0230. Status of Scribe Document: Ready
[2019-01-13] MEDS ORDERED: NS 0.9% 1000 ML** 1,000 ML IV ONE (01:57)
[2019-01-13 02:25] LABS: Urine Appearance Clear; Urine Bacteria Absent (Absent); Urine Bilirubin Negative (Negative); Urine Blood 2+ (Negative); Urine Color Yellow; Urine Glucose Negative (Negative); Urine Ketones Negative (Negative); Urine Nitrite Negative (Negative); Urine Protein Negative (Negative); Urine Red Blood Cell Trace(0-2/hpf) (Absent); Urine Specific Gravity 1.018 (1.010-1.030); Urine Urobilinogen Negative (Negative); Urine White Blood Cell Absent (Absent)
[2019-01-13 02:29] LABS: ABS Basophils 0.1 10^3/ul (0-0.2); ABS Eosinophils 0.1 10^3/ul (0-0.6); ABS Lymphocytes 1.9 10^3/ul (1.0-4.8); ABS Monocytes 0.9 10^3/ul (0-0.8); ABS Neutrophils 13.5 10^3/ul (1.5-7.7); Eosinophil % 0.7 %; Hematocrit 44 % (42-52); Hemoglobin 14.1 g/dL (14.0-18.0); Lymphocyte % 11.3 %; Mean Corpuscular HGB Conc 32 g/dL (31-36); Mean Corpuscular Hemoglobin 27 pg (27-31); Mean Corpuscular Volume 84 fL (80-94); Mean Platelet Volume 8.8 fL (7.4-10.4); Nucleated Red Blood Cells % 0.1; Platelet Count 188 10^3/uL (150-450); Red Blood Count 5.24 10^6 /uL (4.18-5.48); Red Cell Distribution Width 13 % (10.5-15); White Blood Count 16.5 10^3/uL (3.5-10.8)
[2019-01-13 02:30] LABS: Urine Benzodiazepine Screen None Detected (None Detect); Urine Opiates Screen None Detected (None Detect)
[2019-01-13 02:32] LABS: Activated Partial Thrombo Time 28.4 seconds (26.0-36.3); INR 0.95 (0.82-1.09)
[2019-01-13 02:41] LABS: Albumin 4.5 g/dL (3.2-5.2); Albumin/Globulin Ratio 1.5 (1-3); BUN/Creatinine Ratio 12.7 (8-20); Calcium 8.9 mg/dL (8.6-10.3); EGFR African American 77.9 (>60); EGFR Non-African American 64.4 (>60); Magnesium 1.9 mg/dL (1.9-2.7); Potassium 3.8 mmol/L (3.5-5.0); Total Bilirubin 0.3 mg/dL (0.2-1.0); Total Protein 7.5 g/dL (6.4-8.9)
[2019-01-13 02:56] LABS: TSH (Thyroid Stimulating Horm) 2.23 mcIU/mL (0.34-5.60)
[2019-01-13 04:53] VITALS: BP 163/99
== END 2019-01-13 04:45 | disposition home or self-care (01) ==
LOC: ED 00:34 → MERGE 00:34 → ED 04:45
DX: R55 Syncope and collapse (principal); F14.10 Cocaine abuse, uncomplicated; F17.200 Nicotine dependence, unspecified, uncomplicated
CPT/HCPCS: 36415; 80053; 80307; 81003; 81015; 82550; 83605; 83735; 84443; 84484; 85025; 85610; 85730; 93005; 96360; 99283

== ENCOUNTER 2019-08-23 13:40 | Emergency (ER) | payer OTHER ==
--- NOTE | 2019-08-23 14:15 | ED ---
Influenza-Like Illness - HPI Summary HPI Summary: Patient is a 38 y/o M presenting to the ED for a chief complaint of cough for the last week. Patient also complains of nasal congestion, sore throat, generalized body aches, chills, voice hoarseness, lightheadedness, and a sensation in his chest that is described as "burning." Patient denies fever. He admits tobacco use and marijuana use, denies alcohol use. PMHx is significant for PTSD and back problems, but a history of hypertension, hypercholesterolemia , or diabetes mellitus is denied. PSHx is significant for right shoulder surgery. FMHx is significant for diabetes mellitus and hypertension. - History of Current Complaint Chief Complaint: EDUpperRespComplaint Time Seen by Provider: 08/23/19 13:56 Hx Obtained From: Patient Onset/Duration: Sudden Onset, Lasting Days, Still Present Severity: Moderate Associated Signs & Symptoms: Cough, Sore Throat, Nasal Congestion Related Hx: Smoking - Allergy/Home Medications Allergies/Adverse Reactions: Allergies Allergy/AdvReac Type Severity Reaction Status Date / Time tramadol Allergy Severe Difficulty Verified 08/23/19 13:47 Breathing codeine AdvReac Intermediate Hives Verified 08/23/19 13:47 PMH/Surg Hx/FS Hx/Imm Hx Previously Healthy: Yes Endocrine/Hematology History: Denies: Hx Diabetes Cardiovascular History: Denies: Hx Hypercholesterolemia, Hx Hypertension Respiratory History: Denies: Hx Asthma Musculoskeletal History: Reports: Hx Back Problems - herniated discs Sensory History: Denies: Hx Legally Blind, Hx Deafness Opthamlomology History: Denies: Hx Legally Blind EENT History: Denies: Hx Deafness Psychiatric History: Reports: Hx Post Traumatic Stress Disorder - Surgical History Surgical History: Yes Surgery Procedure, Year, and Place: right shoulder surgery Infectious Disease History: No Infectious Disease History: Denies: Traveled Outside the [place] in Last 30 Days - Family History Known Family History: Positive: Hypertension, Diabetes Negative: Blood Disorder - Social History Occupation: Employed Full-time Lives: Alone Alcohol Use: None Hx Substance Use: Yes Substance Use Type: Reports: Marijuana Hx Tobacco Use: Yes Smoking Status (MU): Heavy Every Day Tobacco Smoker Review of Systems Positive: Chills. Negative: Fever Positive: Sore Throat, Other - Positive voice hoarseness and nasal congestion Positive: Other - Postive chest "burning" Positive: Cough Positive: Myalgia - Generalized body aches Neurological: Other - Positive lightheadedness All Other Systems Reviewed And Are Negative: Yes Physical Exam - Summary Physical Exam Summary: VITAL SIGNS: Reviewed. GENERAL: Patient is a well-developed and nourished MALE who is lying comfortable in the stretcher. Patient is not in any acute respiratory distress. HEAD AND FACE: No signs of trauma. No ecchymosis, hematomas or skull depressions. No sinus tenderness.. EYES: PERRLA, EOMI x 2, No injected conjunctiva, no nystagmus. EARS: Hearing grossly intact. Ear canals and tympanic membranes are within normal limits. MOUTH: Oropharynx within normal limits. NECK: Supple, trachea is midline, no adenopathy, no JVD, no carotid bruit, no c- spine tenderness, neck with full ROM. CHEST: Symmetric, no tenderness at palpation. LUNGS: Clear to auscultation bilaterally. No wheezing or crackles. CVS: Regular rate and rhythm, S1 and S2 present, no murmurs or gallops appreciated. ABDOMEN: Soft, non-tender. No signs of distention. No rebound, no guarding, and no masses palpated. Bowel sounds are normal. EXTREMITIES: FROM in all major joints, no edema, no cyanosis or clubbing. NEURO: Alert and oriented x 3. No acute neurological deficits. Speech is normal and follows commands. SKIN: Dry and warm. Triage Information Reviewed: Yes Vital Signs On Initial Exam: Initial Vitals Temp Pulse Resp BP Pulse Ox 98.1 F 90 16 150/108 98 08/23/19 13:42 08/23/19 13:42 08/23/19 13:42 08/23/19 13:42 08/23/19 13:42 Vital Signs Reviewed: Yes Procedures - Sedation Patient Received Moderate/Deep Sedation with Procedure: No Diagnostics - Vital Signs Vital Signs Temp Pulse Resp BP Pulse Ox 08/23/19 13:42 98.1 F 90 16 150/108 98 - Laboratory Lab Statement: Any lab studies that have been ordered have been reviewed, and results considered in the medical decision making process. - Radiology Chest X-ray Radiology Interpretation Completed By: Radiologist Summary of Radiographic Findings: Chest X-ray IMPRESSION: No active cardiopulmonary disease is noted. Reviewed by Dr. Mora. Flu Symptom Course/Dx - Course Assessment/Plan: Patient is a 38 y/o M presenting to the ED for a chief complaint of cough for the last week. Patient also complains of nasal congestion , sore throat, generalized body aches, chills, voice hoarseness, lightheadedness , and a sensation in his chest that is described as "burning." Patient denies fever. He admits tobacco use and marijuana use, denies alcohol use. PMHx is significant for PTSD and back problems, but a history of hypertension, hypercholesterolemia, or diabetes mellitus is denied. PSHx is significant for right shoulder surgery. FMHx is significant for diabetes mellitus and hypertension. Influenza A and B is negative, rapid strep is positive. Chest x- ray impression: No active cardiopulmonary disease. In the ED course the patient was given 1 dose of Augmentin. He will be discharged home with a prescription for Augmentin for 10 days. Patient is hemodynamically stable alert and oriented 3. - Diagnoses Differential Diagnosis/HQI/PQRI: Positive: Bronchitis, Influenza, Upper Respiratory Infection Provider Diagnoses: Strep pharyngitis Discharge ED - Sign-Out/Discharge Documenting (check all that apply): Patient Departure - Discharge - Discharge Plan Condition: Stable Disposition: HOME Prescriptions: Amoxicillin/Clavulanate TAB* [Augmentin TAB 875*] 875 mg PO BID #20 tab Patient Education Materials: Pharyngitis (ED) Forms: *Work Release Referrals: [facility] [Outside] Additional Instructions: FOLLOW UP WITH YOUR PRIMARY CARE PROVIDER WITHIN 3 DAYS. RETURN TO THE EMERGENCY DEPARTMENT FOR ANY WORSENING OR NEW SYMPTOMS. - Billing Disposition and Condition Condition: STABLE Disposition: Home - Attestation Statements Document Initiated by Rupert: Yes Documenting Carlaibe: Amanda Chen Provider For Whom Rupert is Documenting (Include Credential): Calos Mora MD Scribe Attestation: Amanda Riley scribed for Calos Mora MD on 08/23/19 at 1825. Scribe Documentation Reviewed: Yes Provider Attestation: The documentation as recorded by the Amanda jean accurately reflects the service I personally performed and the decisions made by me, Calos Mora MD Status of Scribe Document: Viewed
[2019-08-23 14:37] LABS: Rapid Strep Molecular POSITIVE (Negative)
[2019-08-23 14:40] LABS: Influenza A Molecular NEGATIVE (Negative); Influenza B Molecular NEGATIVE (Negative)
[2019-08-23] MEDS ORDERED: Amoxicillin/Clavulanate TAB* 875 MG PO ONE (14:44)
[2019-08-23 14:58] VITALS: BP 150/98
== END 2019-08-23 14:56 | disposition home or self-care (01) ==
LOC: ED 13:40
DX: J02.0 Streptococcal pharyngitis (principal); Z88.5 Allergy status to narcotic agent; F17.200 Nicotine dependence, unspecified, uncomplicated
CPT/HCPCS: 71046; 87651; 99281; A9270-GY